=== PATIENT | male | born 1985 | race Two or more races ===

== ENCOUNTER 2017-07-31 10:23 | Emergency (ER) | payer SELFPAY ==
[2017-07-31] MEDS ORDERED: ALBUTEROL/IPRATROPIUM 1 VIAL SOL ONE (10:57)
[2017-07-31] MEDS ORDERED: ALBUTEROL/IPRATROPIUM 1 VIAL SOL INH ONE (10:57)
[2017-07-31] MEDS ORDERED: AZITHROMYCIN 250 MG TAB PO ONE (11:20)
[2017-07-31] MEDS ORDERED: CEFTRIAXONE 1 GM PDS IM ONE (11:20)
[2017-07-31] MEDS ORDERED: LIDOCAINE HCL 1% MPF SOL ONE (11:25)
[2017-07-31] MEDS ORDERED: AZITHROMYCIN 250 MG TAB ONE (11:25)
[2017-07-31] MEDS ORDERED: CEFTRIAXONE 1 GM PDS ONE (11:25)
[2017-07-31 11:54] VITALS: RESP 20; O2SAT 98
[2017-07-31 12:11] VITALS: BP 114/63; PULSE 83; TEMP 98.1
== END 2017-07-31 12:23 | disposition home or self-care (01) | DRG 203 ==
LOC: ED 10:23
DX: J20.9 Acute bronchitis, unspecified (principal)
CPT/HCPCS: 71020; 99283; J0696; J7620; J2001